=== PATIENT | female | born 1985 | race Caucasian/White ===

== ENCOUNTER 2018-03-03 01:14 | Inpatient (IN) | payer OTHER ==
[~2018-03-03] VITALS: Ht 167.6 cm; Wt 93.2 kg
[2018-03-03 01:17] VITALS: Ht 167.6 cm; Wt 93.2 kg
[2018-03-03] MEDS ORDERED: SODIUM CHLORIDE 0.9% 1L BAG IV* STA (01:34)
[2018-03-03] MEDS ORDERED: ONDANSETRON 4 MG INJ IV STA (02:15)
[2018-03-03] MEDS ORDERED: PIPER-TAZO 3.375 GM IV (PMX) 100 ML IVPB STA (02:15)
[2018-03-03] MEDS ORDERED: morphine 4 MG/ML VIAL IV STA (02:15)
--- NOTE | 2018-03-03 05:53 | ERD ---
ER Documentation Chief Complaint Chief Complaint right leg pain/swelling x 4 days HPI This is a very pleasant 32-year-old female, with lower extremity swelling and redness. Patient states she was in [place] 2 days ago and was to be admitted for invasive cellulitis however the patient was driving back to [place]. She has mild pain in the leg. No fevers no chills. History of MRSA in the past. No other current issues. ROS All systems reviewed and are negative except as per history of present illness. Allergies Allergies: Coded Allergies: sulfamethoxazole (Verified Allergy, Unknown, 03/03/18) trimethoprim (Verified Allergy, Unknown, 03/03/18) PMhx/Soc History of Surgery: Yes (RIGHT LEG ) Hx Alcohol Use: No Hx Substance Use: No Hx Tobacco Use: Yes Smoking Status: Current every day smoker Physical Exam Vitals Vital Signs Date Temp Pulse Resp B/P (MAP) Pulse Ox O2 O2 Flow FiO2 Time Delivery Rate 03/03/18 111 16 135/97 94 Room Air 04:00 (110) 03/03/18 122 17 130/81 100 Room Air 02:00 (97) 03/03/18 100.4 125 18 143/94 97 01:17 (110) Physical Exam Const: No acute distress Head: Atraumatic Eyes: Normal Conjunctiva ENT: Normal External Ears, Nose and Mouth. Neck: Full range of motion. No meningismus. Resp: Clear to auscultation bilaterally Cardio: Regular rate and rhythm, no murmurs Abd: Soft, non tender, non distended. Normal bowel sounds Skin: Erythema and induration noted of the right lower extremity up to the midcalf. Back: No midline or flank tenderness Ext: No cyanosis, or edema Neur: Awake and alert Psych: Normal Mood and Affect Result Diagram: 03/03/18 0231 03/03/18 0231 Results 24 hrs Laboratory Tests Test 03/03/18 02:31 03/03/18 02:38 03/03/18 03:00 03/03/18 03:11 White Blood 15.4 10^3/ul Count Red Blood Count 4.12 10^6/ul Hemoglobin 11.8 g/dl Hematocrit 37.0 % Mean 89.8 fl Corpuscular Volume Mean 28.6 pg Corpuscular Hemoglobin Mean 31.9 g/dl Corpuscular Hemoglobin Conc ent Red Cell 13.3 % Distribution Width Platelet Count 428 10^3/UL Mean Platelet 9.5 fl Volume Immature 0.500 % Granulocytes % Neutrophils % 77.5 % Lymphocytes % 10.8 % Monocytes % 7.4 % Eosinophils % 3.3 % Basophils % 0.5 % Nucleated Red 0.0 /100WBC Blood Cells % Immature 0.070 10^3/ul Granulocytes # Neutrophils # 11.9 10^3/ul Lymphocytes # 1.7 10^3/ul Monocytes # 1.1 10^3/ul Eosinophils # 0.5 10^3/ul Basophils # 0.1 10^3/ul Nucleated Red 0.0 10^3/ul Blood Cells # Prothrombin 12.2 Sec Time Prothrombin 1.0 Time Ratio INR 0.90 International Normalized Rati o Activated 31.2 Sec Partial Thrombo plast Time Sodium Level 142 mmol/L Potassium Level 4.0 mmol/L Chloride Level 106 mmol/L Carbon Dioxide 27 mmol/L Level Anion Gap 9 Blood Urea 11 mg/dl Nitrogen Creatinine 0.60 mg/dl Est Glomerular > 60 mL/min Filtrat Rate mL/min Glucose Level 108 mg/dl Calcium Level 8.6 mg/dl Troponin I < 0.012 ng/ml POC Venous 1.3 mmol/L Lactate Urine Color YELLOW Urine Clarity CLOUDY Urine pH 5.0 Urine Specific 1.011 [place] Urine Ketones NEGATIVE mg/dL Urine Nitrite NEGATIVE mg/dL Urine Bilirubin NEGATIVE mg/dL Urine NEGATIVE mg/dL Urobilinogen Urine Leukocyte TRACE [place]/ul Esterase Urine 0 /HPF Microscopic RBC Urine 7 /HPF Microscopic WBC Urine Squamous MODERATE /HPF Epithelial Cell s Urine Bacteria FEW /HPF Urine 1+ mg/dL Hemoglobin Urine Glucose NEGATIVE mg/dL Urine Total NEGATIVE mg/dl Protein POC Beta HCG, NEGATIVE Qualitative Test 03/03/18 05:32 POC Venous 1.1 mmol/L Lactate Current Medications Medications Dose Sig/Morro Start Time Status Last (Trade) Ordered Route PRN Stop Time Admin Dose Reason Admin Sodium 2,800 ml BOLUS OVER 2 03/03/18 DC 03/03/18 Chloride HOURS STAT 01:34 02:41 (NS) IV* 03/03/18 01:36 Morphine 4 mg ONCE STAT 03/03/18 DC 03/03/18 Sulfate IV 02:15 02:41 (morphine) 03/03/18 02:17 Ondansetron 4 mg ONCE STAT 03/03/18 DC 03/03/18 HCl (Zofran IV 02:15 02:40 Inj) 03/03/18 02:17 Piperacillin 100 ml @ ONCE STAT 03/03/18 DC 03/03/18 Sod/ 200 mls/hr IVPB 02:15 02:41 Tazobactam 03/03/18 Sod 02:44 IV Flush 3 ml PER 03/03/18 UNV (NS 3 ml) PROTOCOL IV 06:00 Ondansetron 4 mg Q6H PRN 03/03/18 UNV HCl (Zofran IV NAUSEA 06:00 Inj) AND/OR VOMITING 650 mg Q6H PRN 03/03/18 UNV Acetaminophen PO PAIN 06:00 (Tylenol LEVEL 1-3 OR Tab) FEVER 1 tab Q6H PRN 03/03/18 UNV Acetaminophen PO MODERATE 06:00 / PAIN LEVEL Hydrocodone 4-6 Bitart ([place] (5/325)) Docusate 100 mg Q12H PRN 03/03/18 UNV Sodium PO 06:00 (Colace) CONSTIPATION Bisacodyl 5 mg DAILY PRN 03/03/18 UNV (Dulcolax) PO 06:00 CONSTIPATION Heparin 5,000 unit Q8 SC 03/03/18 UNV Sodium 06:00 (Porcine) (Heparin (5000 Units/1ml)) Vancomycin VANCOMYCIN PER 03/03/18 HCl (Vanco PER PHARMACY PROTOCOL XX 06:00 Iv Per Pharmacy) Procedures/MDM Medical decision make: 32-year-old female with cellulitis acute on chronic in the right lower extremity. Start on antibiotics. Culture sent off. Patient will be admitted to hospitalist. Departure Diagnosis: Primary Impression: Swelling Additional Impression: Cellulitis Site of cellulitis: extremity Site of cellulitis of extremity: lower extremity Laterality: right Qualified Codes: L03.115 - Cellulitis of right lower limb Condition: Serious ALENINDIRA AMAROMiguel Mar 03, 2018 05:53
[2018-03-03] MEDS ORDERED: HEPARIN 5,000 UNIT/1 ML VIAL SC SCH (06:00)
[2018-03-03] MEDS ORDERED: VANCOMYCIN IV PER PHARMACY XX SCH (06:00)
[2018-03-03] MEDS ORDERED: ONDANSETRON 4 MG INJ IV PRN (06:00)
[2018-03-03] MEDS ORDERED: DOCUSATE SODIUM 100 MG CAP PO PRN (06:00)
[2018-03-03] MEDS ORDERED: BISACODYL (EC) 5 MG TAB PO PRN (06:00)
[2018-03-03] MEDS ORDERED: ACETAMINOPHEN 325 MG TAB PO PRN (06:00)
[2018-03-03] MEDS ORDERED: NACL 0.9% 3 ML SYG IV SCH (06:00)
--- NOTE | 2018-03-03 06:27 | NUR ---
Vancomycin per Rx 32 y/o F 5'6" 93kg SCr 0.60 Allergy: bactrim Vancomycin 2gm IV x1 dose load Then start Vancomycin 1gm IV q8h Check Vancomycin trough level soon
[2018-03-03] MEDS ORDERED: VANCOMYCIN 2 GM in SOD CHLORIDE 0.9% 500 ML IVPB ONE (06:30)
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
[2018-03-03 07:25] VITALS: BP 118/73; PULSE 102; RESP 18
[2018-03-03] MEDS ORDERED: morphine 4 MG/ML VIAL IV PRN ×3 (07:30→10:30)
--- NOTE | 2018-03-03 07:49 | NUR ---
Strong smell of smoke: Strong smell of smoke coming out of patient room 6399.This patient is new admission from the ER, was here earlier with her, room checked and patient denies smoking, matches were found on bedside table these were confiscated. Patient was made aware and educated on [facility] no smoking policy. Patient denied having smoked, she did say her smokes. Security called to search room.
[2018-03-03] MEDS ORDERED: IOHEXOL 300MG/ML 150 ML BTL ONE (07:58)
[2018-03-03] MEDS ORDERED: SOD CHLORIDE 0.9% 100 ML ONE (07:58)
[2018-03-03] MEDS ORDERED: NICOTINE POLACRILEX 2 MG GUM BUCCAL PRN (08:00)
--- NOTE | 2018-03-03 08:00 | NUR ---
Admission Notes Alert and oriented verbally responsive, complaining of pain in RLE. Fall precautions placed, oriented to unit, all needs attended to at this time.
--- NOTE | 2018-03-03 08:21 | PN ---
Date/Time of Note Date/Time of Note DATE: 03/03/18 TIME: 08:21 Assessment/Plan VTE Prophylaxis SCD applied (from Nsg): Yes Pharmacological prophylaxis: LMWH Lines/Catheters IV Catheter Type (from Nrsg): Saline Lock Assessment/Plan Assessment/Plan 1. Acute right lower extremity calf pain - Per patient she has been undergoing surgeries and treatment for right lower extremity at different hospitals in [place] and [place] - She has significant pain but no signs of erythema or open wound. mild warmth appreciated. - US negative for DVT and awaiting CT scan results - Pain control and patient states she usually is given high doses of narcotics. Does experiencing itching with morphine - Will consult pain management if needed 2. RLE cellulitis - continue on IV antibiotics and monitor for improvement in pain - Tylenol PRN for fevers and still remains tachycardic due to pain 3. HTN - stable 4. Obesity - lifestyle modification counseling provided 5. Tobacco use - nicotine patch 6. h/o MRSA infection in right thigh 7. Normocytic anemia - iron studies ordered 8. Disposition - Continue monitoring med/surg - Pending CT scan LE results - if needed, will consult pain management for better pain control Result Diagram: 03/03/18 0231 03/03/18 0231 Results 24hrs Laboratory Tests Test 03/03/18 02:31 03/03/18 02:38 03/03/18 03:00 03/03/18 03:11 White Blood 15.4 H Count Red Blood Count 4.12 L Hemoglobin 11.8 L Hematocrit 37.0 Mean Corpuscular 89.8 Volume Mean Corpuscular 28.6 L Hemoglobin Mean Corpuscular 31.9 L Hemoglobin Ngoc nt Red Cell 13.3 Distribution Width Platelet Count 428 H Mean Platelet 9.5 Volume Immature 0.500 H Granulocytes % Neutrophils % 77.5 H Lymphocytes % 10.8 L Monocytes % 7.4 Eosinophils % 3.3 Basophils % 0.5 Nucleated Red 0.0 Blood Cells % Immature 0.070 H Granulocytes # Neutrophils # 11.9 H Lymphocytes # 1.7 Monocytes # 1.1 H Eosinophils # 0.5 Basophils # 0.1 Nucleated Red 0.0 Blood Cells # Prothrombin Time 12.2 Prothrombin Time 1.0 Ratio INR 0.90 International Normalized Ratio Activated 31.2 Partial Thrombop last Time Sodium Level 142 Potassium Level 4.0 Chloride Level 106 Carbon Dioxide 27 Level Anion Gap 9 Blood Urea 11 Nitrogen Creatinine 0.60 Est Glomerular > 60 Filtrat Rate mL/min Glucose Level 108 Calcium Level 8.6 Troponin I < 0.012 POC Venous 1.3 Lactate Urine Color YELLOW Urine Clarity CLOUDY A Urine pH 5.0 Urine Specific 1.011 [place] Urine Ketones NEGATIVE Urine Nitrite NEGATIVE Urine Bilirubin NEGATIVE Urine NEGATIVE Urobilinogen Urine Leukocyte TRACE A Esterase Urine 0 Microscopic RBC Urine 7 H Microscopic WBC Urine Squamous MODERATE Epithelial Cells Urine Bacteria FEW A Urine Hemoglobin 1+ H Urine Glucose NEGATIVE Urine Total NEGATIVE Protein POC Beta HCG, NEGATIVE Qualitative Test 03/03/18 05:32 POC Venous 1.1 Lactate Subjective 24 Hr Interval Summary Free Text/Dictation Patient states shes still in excrutiating pain especially after undergoing imaging studies. She said she was recently treated for thigh cellulitis and given Morphine 8mg and Dilaudid 4mg so has high tolerance for pain. Discussed need for pain management at this time since will not be given the high doses at this time. No acute overnight events. Exam/Review of Systems Vital Signs Vitals Vital Signs Date Temp Pulse Resp B/P (MAP) Pulse Ox O2 O2 Flow FiO2 Time Delivery Rate 03/03/18 109 15 139/79 96 Room Air 06:09 (99) 03/03/18 100.4 01:17 Exam General: Mild distress secondary to pain. answering questions appropriately Neck: Supple Chest: Nontender Lungs: Clear to auscultation bilaterally no crackles rales or wheezing Heart: Normal S1-S2, Regular rhythm. tachycardia. No murmur, S3, or S4 Abdomen: Obese, soft , nontender, nondistended , bowel sounds are present. No guarding no rebound tenderness Extremities: Right calf tenderness to palpation, mild induration medial right thigh, no erythema or redness noted. Skin: Old healing wounds of the right medial leg as well as calf, nondraining., No erythema or redness or swelling noted of the right lower extremity Medications Medications Current Medications IV Flush (NS 3 ml) 3 ml PER PROTOCOL IV ; Start 03/03/18 at 06:00 Ondansetron HCl (Zofran Inj) 4 mg Q6H PRN IV NAUSEA AND/OR VOMITING; Start 03/03/18 at 06:00 Acetaminophen (Tylenol Tab) 650 mg Q6H PRN PO PAIN LEVEL 1-3 OR FEVER; Start 03/03/18 at 06:00 Acetaminophen/ Hydrocodone Bitart ([place] (5/325)) 1 tab Q6H PRN PO MODERATE PAIN LEVEL 4-6; Start 03/03/18 at 06:00 Docusate Sodium (Colace) 100 mg Q12H PRN PO CONSTIPATION; Start 03/03/18 at 06:00 Bisacodyl (Dulcolax) 5 mg DAILY PRN PO CONSTIPATION; Start 03/03/18 at 06:00 Heparin Sodium (Porcine) (Heparin (5000 Units/1ml)) 5,000 unit Q8 SC Last administered on 03/03/18at 06:09; Admin Dose 5,000 UNIT; Start 03/03/18 at 06:00 Vancomycin HCl (Vanco Iv Per Pharmacy) VANCOMYCIN PER PHARMACY PER PROTOCOL XX ; Start 03/03/18 at 06:00 Vancomycin HCl 2 gm/Sodium Chloride 500 ml @ 125 mls/hr ONCE ONCE IVPB Last administered on 03/03/18at 07:39; Admin Dose 125 MLS/HR; Start 03/03/18 at 06:30; Stop 03/03/18 at 10:29 Vancomycin HCl 250 ml @ 125 mls/hr Q8H IVPB ; Start 03/03/18 at 16:00 Morphine Sulfate (morphine) 4 mg Q4H PRN IV SEVERE PAIN LEVEL 7-10 Last administered on 03/03/18at 07:57; Admin Dose 4 MG; Start 03/03/18 at 07:30 Piperacillin Sod/ Tazobactam Sod 100 ml @ 200 mls/hr Q6 IVPB ; Start 03/03/18 at 12:00 Nicotine (Nicoderm 21 Mg/ 24hr) 1 patch DAILY TRANSDERM ; Start 03/03/18 at 09:00 Nicotine Polacrilex (Nicorette) 2 mg Q2H PRN BUCCAL CRAVING CIGGARETES; Start 03/03/18 at 08:00 MITESH HERNANDEZ MD Mar 03, 2018 08:21
--- NOTE | 2018-03-03 08:24 | NUR ---
Procedure Ordered:CT RT LOWER EXTREMITY W/CONTRAST Reason for Exam Today:RT CALF PAIN/CELLULITIS Previous Exams: Allergies:SULFA Current Medications Taken: Glucophage ( ) Metformin ( ) Previous reaction to contrast media: Yes ( ) No ( X) : Yes ( ) No ( X) Asthma: Yes ( ) No (X ) Diabetes: Yes ( ) No ( X) Myeloma: Yes ( ) No (X ) Heart Disease: Yes ( X) No ( ) Cardiac Disease: Yes (X ) No ( ) Kidney Disease: Yes ( ) No (X ) Vascular Disease: Yes ( ) No ( X) Patient Teaching done: Yes ( ) No ( ) Manager Small Business Used: Yes ( ) No ( ) Name of Manager Small Business: Language Used: As part of the test requested by your doctor, contrast media may be injected into your vein while the x-rays are being taken. Occasionally, reactions from IV contrast may occur. The physician and staff of this hospital are trained to treat these reactions. Select the type of Contrast that will be given to patient: Isovue 300 ( ) Isovue 370 ( ) Visipaque ( ) Cystografin ( ) OMNIPAQUE 300 (X) Gastrographin ( ) Redi-cat ( ) Volumen ( ) Amount of contrast to be given: 90CC IV (X ) PO ( ) Date given:03/03/18 Lab Values: BUN: 11 Creatinine:0.60 Reason why contrast cannot be given: Location of patient pre-procedure:[facility] Location of patient post procedure:[facility] PT TOLERATED IV CONTRAST INJECTION WELL
[2018-03-03] MEDS ORDERED: HYDROmorphONE 2 MG/ML SYG IV PRN ×2 (09:30→10:00)
[2018-03-03] MEDS ORDERED: SENNA/DOCUSATE NA (8.6MG/50MG) TAB PO PRN (10:00)
[2018-03-03] MEDS: DIPHENHYDRAMINE 50 MG INJ IV PRN ×2 (10:39→18:17)
[2018-03-03] MEDS: NICOTINE (21 MG/24 HR) PATCH TRANSDERM SCH (10:40)
--- NOTE | 2018-03-03 12:18 | NUR ---
relayed sepsis risk to Dr Rayray MD will place orders
[2018-03-03] MEDS: PIPER-TAZO 3.375 GM IV (PMX) 100 ML IVPB SCH ×2 (13:20→19:06)
[2018-03-03] MEDS: SOD CHLORIDE 0.9% 1,000 ML IV SCH (13:20)
[2018-03-03] MEDS ORDERED: VANCOMYCIN 1 GM 250 ML IVPB SCH (15:00)
[2018-03-03 15:29] VITALS: BP 136/82; PULSE 116; RESP 16
--- NOTE | 2018-03-03 16:44 | CONS ---
DATE OF ADMISSION: 03/03/2018 DATE OF CONSULTATION: 03/03/2018 TYPE OF CONSULTATION: Infectious disease. REASON FOR CONSULTATION: Antibiotic management. HISTORY OF PRESENT ILLNESS: Janina Buckner is a 32-year-old female who was admitted to med/surg with r ight lower extremity calf pain and is being seen for antibiotic management. The patient complains of especially right lower extremity calf pain. As she was recently treated for cellulitis, she was con tinued on vancomycin and Zosyn at the current time. She has tenderness to palpation of the right sheldon f, but there is no erythema or redness or swelling. Lower extremity Doppler ultrasound was done to r ule out DVT and a CT scan to rule out deep tissue infection. She presented febrile. Her white count is 15.4, H and H of 11.8 and 37, platelet count 428,000. BUN and creatinine is 11/0.6. Random gluc ose is 108. She was in [place] 2 days ago and was to be admitted for invasive cellulitis; however, she drove back to [place]. She has a history of MRSA in the past. PAST SURGICAL HISTORY: Surgery to right leg. FAMILY HISTORY: Noncontributory. SOCIAL HISTORY: She does not smoke, drink or abuse drugs. ALLERGIES: 1. TRIMETHOPRIM. 2. SULFA. MEDICATIONS: Per chart. REVIEW OF SYSTEMS: Noncontributory. PHYSICAL EXAMINATION: GENERAL: She is a well-developed, well-nourished female who is alert, responsive, in no acute distre ss. VITAL SIGNS: Stable. T-max 100.4. SKIN: Without generalized rash. She has erythema and induration of the right lower extremity up to the mid calf. HEENT: Within normal limits. NECK: Supple. LYMPH NODES: None palpable. CHEST: Decreased breath sounds at the bases. HEART: Without murmur or gallop. ABDOMEN: Soft, nontender without organosplenomegaly or masses. EXTREMITIES: Without cyanosis, clubbing or edema. RECTAL AND GENITAL: Deferred. NEUROLOGIC: No focal neurological abnormalities. DIAGNOSTIC DATA: Venous study showed no evidence of DVTs. chest x-ray showed no evidence of acute c ardiopulmonary disease. Lower extremity CT showed multiloculated intramuscular fluid collection in t he anteromedial aspect of the proximal head of the gastrocnemius and soleus muscle concerning for int ramuscular abscess, anteromedial predominant soft tissue edema with various overlying skin thickening suggesting cellulitis. No CT evidence of acute osseous abnormality. IMPRESSION AND PLAN: The patient was placed on vancomycin and Zosyn. My impression is that she has intramuscular abscess and she will need drainage from surgery. Invasive radiology probably could do that too, but I think she is going to need a surgeon to go in and clean out her abscesses. In the sd antime, she is on vancomycin and Zosyn. I will dictate my findings to the hospitalist. Dictated By: MELISSA VILLEGAS MD, JD/NTS Conf#: [id number] DID#: [id number] CC: MITESH HERNANDEZ MD; CORNELL MC MD;*End*
[2018-03-03] MEDS: HYDROCODONE/APAP (5/325) TAB PO PRN ×2 (16:49→22:49)
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
[2018-03-03] MEDS ORDERED: LIDOCAINE 1% (MPF) 30 ML INJ INJ PRN (17:00)
[2018-03-03] MEDS: morphine 4 MG/ML VIAL IV PRN ×2 (17:14→21:16)
[2018-03-03] MEDS: VANCOMYCIN 1 GM 250 ML IVPB SCH (17:28)
[2018-03-03] MEDS: KETOROLAC 30 MG INJ IV PRN (18:16)
--- NOTE | 2018-03-03 19:29 | NUR ---
End of Shift Notes Resting comfortably in bed, procedure done with Dr Marie and tolerated well. Hourly roundings done, patient educated on non-smoking policy of facility. at bedside, all needs attended to hourly roundings done, pain managed
[2018-03-03 20:10] VITALS: BP 136/68; PULSE 119; RESP 18
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
[2018-03-04] MEDS: PIPER-TAZO 3.375 GM IV (PMX) 100 ML IVPB SCH ×4 (00:03→22:39)
[2018-03-04] MEDS: DIPHENHYDRAMINE 50 MG INJ IV PRN ×3 (00:14→23:04)
[2018-03-04] MEDS: morphine 4 MG/ML VIAL IV PRN ×3 (01:13→09:30)
[2018-03-04] MEDS: VANCOMYCIN 1 GM 250 ML IVPB SCH ×2 (01:13→07:48)
[2018-03-04 01:38] VITALS: BP 127/88; PULSE 106; RESP 18
[2018-03-04] MEDS: SOD CHLORIDE 0.9% 1,000 ML IV SCH (02:04)
--- NOTE | 2018-03-04 06:14 | NUR ---
EOSS: Patient remains stable. No s/s of SOB noted. Complains of pain intermittently and medicated with morphine 4mg IV Q4H PRN. No other complaints at this time. Will endorse to morning nurse for continuity of care.
[2018-03-04 07:43] VITALS: BP 138/82; PULSE 71; RESP 20
[2018-03-04] MEDS: HYDROCODONE/APAP (5/325) TAB PO PRN ×3 (07:48→22:36)
[2018-03-04 08:09] VITALS: BP 125/76; PULSE 100; RESP 18
--- NOTE | 2018-03-04 08:17 | PN ---
Date/Time of Note Date/Time of Note DATE: 03/04/18 TIME: 08:17 Assessment/Plan VTE Prophylaxis Risk score (from Ns)>0 risk: 3 SCD applied (from Ns): No SCD contraindicated: patient refusal Pharmacological prophylaxis: LMWH Lines/Catheters IV Catheter Type (from Nrsg): Peripheral IV Assessment/Plan Assessment/Plan 1. Acute right lower extremity calf pain- improving - Podiatry on board and appreciate consultation. performed aspiration 03/03 and sent fluid for cultures - ID on board and appreciate recommendations. Continue current antibiotics and await cx results - Pain management consulted given patient keeps requesting high doses of Morphine - Imaging study results noted 2. RLE cellulitis- improving - continue on IV antibiotics - Tylenol PRN for fevers and still remains tachycardic due to pain 3. HTN - stable 4. Obesity - lifestyle modification counseling provided 5. Tobacco use - nicotine patch 6. h/o MRSA infection in right thigh 7. Iron deficiency anemia - iron studies noted 8. Disposition - Continue pain control and await final culture results prior to discharge home Result Diagram: 03/04/18 0718 03/04/18 0718 Results 24hrs Laboratory Tests Test 03/04/18 07:18 White Blood Count 13.7 H Red Blood Count 3.76 L Hemoglobin 10.6 L Hematocrit 33.4 L Mean Corpuscular Volume 88.8 Mean Corpuscular Hemoglobin 28.2 L Mean Corpuscular Hemoglobin Concent 31.7 L Red Cell Distribution Width 13.6 Platelet Count 378 Mean Platelet Volume 9.3 Immature Granulocytes % 0.700 H Neutrophils % 72.8 Lymphocytes % 13.2 L Monocytes % 9.1 Eosinophils % 3.8 Basophils % 0.4 Nucleated Red Blood Cells % 0.0 Immature Granulocytes # 0.090 H Neutrophils # 10.0 H Lymphocytes # 1.8 Monocytes # 1.3 H Eosinophils # 0.5 Basophils # 0.1 Nucleated Red Blood Cells # 0.0 Sodium Level 140 Potassium Level 4.3 Chloride Level 104 Carbon Dioxide Level 28 Anion Gap 8 Blood Urea Nitrogen 11 Creatinine 0.53 Est Glomerular Filtrat Rate mL/min > 60 Glucose Level 138 Hemoglobin A1c 5.5 Calcium Level 8.6 Magnesium Level 1.9 Iron Level 19 L Total Iron Binding Capacity 290 Percent Iron Saturation 7 L Total Bilirubin 0.0 L Direct Bilirubin 0.00 Indirect Bilirubin 0.0 Aspartate Amino Transf (AST/SGOT) 10 L Alanine Aminotransferase (ALT/SGPT) 27 Alkaline Phosphatase 66 Total Protein 6.1 Albumin 3.1 L Globulin 3.00 Albumin/Globulin Ratio 1.03 Triglycerides Level 86 Cholesterol Level 130 LDL Cholesterol, Calculated 80 HDL Cholesterol 33 L Cholesterol/HDL Ratio 3.9 Thyroid Stimulating Hormone (TSH) Pending Vancomycin Level Trough 9.5 L Subjective 24 Hr Interval Summary Free Text/Dictation Patient seen ambulating on right foot without any issues. Still complaining about pain but significantly improved. Also asking to leave the unit with super vision but not approved by nursing bookkeeping clerks supervisor. Exam/Review of Systems Vital Signs Vitals Vital Signs Date Temp Pulse Resp B/P (MAP) Pulse Ox O2 O2 Flow FiO2 Time Delivery Rate 03/04/18 98.5 100 18 125/76 100 Room Air 08:09 (92) Intake and Output 03/03/18 03/03/18 03/04/18 1515:00 23:00 07:00 IntakeIntake Total 1080 ml 1865 ml 950 ml BalanceBalance 1080 ml 1865 ml 950 ml Exam General: No acute distress while limping on right foot. answering questions appropriately Neck: Supple Lungs: Clear to auscultation bilaterally no crackles rales or wheezing Heart: Normal S1-S2, Regular rhythm. tachycardia. No murmur, S3, or S4 Abdomen: Obese, soft , nontender, nondistended , bowel sounds are present. No guarding no rebound tenderness Extremities: Right calf mildly tender palpation, Kerlix wrapped around calf, no discharge or drainage noted. Skin: Old healing wounds of the right medial thigh, nondraining Medications Medications Current Medications IV Flush (NS 3 ml) 3 ml PER PROTOCOL IV ; Start 03/03/18 at 06:00 Ondansetron HCl (Zofran Inj) 4 mg Q6H PRN IV NAUSEA AND/OR VOMITING; Start at 06:00 Acetaminophen (Tylenol Tab) 650 mg Q6H PRN PO PAIN LEVEL 1-3 OR FEVER; Start 03/03/18 at 06:00 Acetaminophen/ Hydrocodone Bitart ([place] (5/325)) 1 tab Q6H PRN PO MODERATE PAIN LEVEL 4-6 Last administered on 03/04/18at 07:48; Admin Dose 1 TAB; Start 03/03/18 at 06:00 Docusate Sodium (Colace) 100 mg Q12H PRN PO CONSTIPATION; Start 03/03/18 at 06:00 Bisacodyl (Dulcolax) 5 mg DAILY PRN PO CONSTIPATION; Start 03/03/18 at 06:00 Vancomycin HCl (Vanco Iv Per Pharmacy) VANCOMYCIN PER PHARMACY PER PROTOCOL XX ; Start 03/03/18 at 06:00 Vancomycin HCl 250 ml @ 125 mls/hr Q8H IVPB Last administered on 03/04/18at 07:48; Admin Dose 125 MLS/HR; Start 03/03/18 at 16:00 Piperacillin Sod/ Tazobactam Sod 100 ml @ 200 mls/hr Q6 IVPB Last administered on 03/04/18at 05:25; Admin Dose 200 MLS/HR; Start 03/03/18 at 12:00 Nicotine (Nicoderm 21 Mg/ 24hr) 1 patch DAILY TRANSDERM Last administered on 03/03/18at 10:40; Admin Dose 1 PATCH; Start 03/03/18 at 09:00 Nicotine Polacrilex (Nicorette) 2 mg Q2H PRN BUCCAL CRAVING CIGGARETES; Start 03/03/18 at 08:00 Diphenhydramine HCl (Benadryl) 25 mg Q6H PRN IV itching Last administered on 03/04/18at 00:14; Admin Dose 25 MG; Start 03/03/18 at 09:30 Senna/Docusate Sodium (Senokot-S) 1 tab BID PRN PO constipation; Start 03/03/18 at 10:00 Enoxaparin Sodium (Lovenox) 40 mg DAILY SC ; Start 03/04/18 at 09:00 Ketorolac Tromethamine (Toradol) 30 mg Q6H PRN IV PAIN LEVEL 1-3 Last administered on 03/03/18at 18:16; Admin Dose 30 MG; Start 03/03/18 at 10:00; Stop 03/06/18 at 09:59 Sodium Chloride 1,000 ml @ 75 mls/hr [id number] IV Last administered on 03/03/18at 13:20; Admin Dose 75 MLS/HR; Start 03/03/18 at 13:00 Morphine Sulfate (morphine) 4 mg Q4H PRN IV PAIN LEVEL 4-6 Last administered on 03/04/18at 05:22; Admin Dose 4 MG; Start 03/03/18 at 14:00 Lidocaine (Xylocaine 1% (Mpf)) 30 ml ONCE PRN INJ pain Last administered on 03/03/18at 17:01; Admin Dose 30 ML; Start 03/03/18 at 17:00; Stop 03/04/18 at 16:59 Ferrous Sulfate (Ferrous Sulfate (Ec)) 325 mg DAILY PO ; Start 03/04/18 at 09:00 MITESH HERNANDEZ MD Mar 04, 2018 08:17
[2018-03-04] MEDS ORDERED: ENOXAPARIN 40 MG/0.4 ML SYG SC SCH (09:00)
[2018-03-04] MEDS ORDERED: FERROUS SULFATE (EC) 325 MG TAB PO SCH (09:00)
--- NOTE | 2018-03-04 09:09 | NUR ---
Vancomycin per Rx Vancomycin trough = 9.5 SCr 0.53 Change Vancomycin to 1.25 gm IV q8h
[2018-03-04] MEDS: NICOTINE (21 MG/24 HR) PATCH TRANSDERM SCH (09:36)
[2018-03-04] MEDS: LORAZEPAM 4 MG/ML VIAL IV PRN ×2 (11:42→19:59)
--- NOTE | 2018-03-04 12:41 | CONS ---
Date/Time of Note Date/Time of Note DATE: 03/04/18 TIME: 12:41 Assessment/Plan Assessment/Plan Hospital Course Alert feels much better looks comfortable no fevers overnight WBC today 13.7 neutrophils 72.8 BUN 11 creatinine 0.53 Antimicrobials: Vanco Zosyn Physical examination: This is a morbidly obese well-developed middle-aged woman who is alert in no distress. Head atraumatic normocephalic sclera nonicteric neck is supple chest rise symmetrical breath sounds clear heart: S1-S2. Abdomen soft bowel sounds present. Extremities: right lower extremity Ed wrapped. Patient has a dry wound above the knee on inner part of the leg Assessment: 1. Right lower extremity cellulitis questionable abscess, status post aspiration by podiatry yesterday with marked improvement 2. Obesity 3. Anxiety disorder 4. Hypertension 5. Chronic tobacco use 6. Allergy: Bactrim Plan: Patient remains stable per discussion with podiatry right lower extremity looks much better, continue on current antibiotics and await for drainage cultures. Anticipate discharge on oral antibiotics Result Diagram: 03/04/18 0718 03/04/18 0718 Results 24hrs Laboratory Tests Test 03/04/18 07:15 03/04/18 07:18 Erythrocyte Sedimentation Rate 72 H C-Reactive Protein 7.5 H White Blood Count 13.7 H Red Blood Count 3.76 L Hemoglobin 10.6 L Hematocrit 33.4 L Mean Corpuscular Volume 88.8 Mean Corpuscular Hemoglobin 28.2 L Mean Corpuscular Hemoglobin Concent 31.7 L Red Cell Distribution Width 13.6 Platelet Count 378 Mean Platelet Volume 9.3 Immature Granulocytes % 0.700 H Neutrophils % 72.8 Lymphocytes % 13.2 L Monocytes % 9.1 Eosinophils % 3.8 Basophils % 0.4 Nucleated Red Blood Cells % 0.0 Immature Granulocytes # 0.090 H Neutrophils # 10.0 H Lymphocytes # 1.8 Monocytes # 1.3 H Eosinophils # 0.5 Basophils # 0.1 Nucleated Red Blood Cells # 0.0 Sodium Level 140 Potassium Level 4.3 Chloride Level 104 Carbon Dioxide Level 28 Anion Gap 8 Blood Urea Nitrogen 11 Creatinine 0.53 Est Glomerular Filtrat Rate mL/min > 60 Glucose Level 138 Hemoglobin A1c 5.5 Calcium Level 8.6 Magnesium Level 1.9 Iron Level 19 L Total Iron Binding Capacity 290 Percent Iron Saturation 7 L Ferritin 52.1 Total Bilirubin 0.0 L Direct Bilirubin 0.00 Indirect Bilirubin 0.0 Aspartate Amino Transf (AST/SGOT) 10 L Alanine Aminotransferase (ALT/SGPT) 27 Alkaline Phosphatase 66 Total Protein 6.1 Albumin 3.1 L Globulin 3.00 Albumin/Globulin Ratio 1.03 Triglycerides Level 86 Cholesterol Level 130 LDL Cholesterol, Calculated 80 HDL Cholesterol 33 L Cholesterol/HDL Ratio 3.9 Thyroid Stimulating Hormone (TSH) 3.940 Vancomycin Level Trough 9.5 L Consultation Date/Type/Reason Admit Date/Time Mar 03, 2018 at 05:38 Initial Consult Date Type of Consult id Exam/Review of Systems Vital Signs Vitals Vital Signs Date Temp Pulse Resp B/P (MAP) Pulse Ox O2 O2 Flow FiO2 Time Delivery Rate 03/04/18 98.5 100 18 125/76 100 Room Air 08:09 (92) Intake and Output 03/03/18 03/03/18 03/04/18 1515:00 23:00 07:00 IntakeIntake Total 1080 ml 1865 ml 950 ml BalanceBalance 1080 ml 1865 ml 950 ml Medications Medications Current Medications IV Flush (NS 3 ml) 3 ml PER PROTOCOL IV ; Start 03/03/18 at 06:00 Ondansetron HCl (Zofran Inj) 4 mg Q6H PRN IV NAUSEA AND/OR VOMITING Last administered on 03/04/18at 09:40; Admin Dose 4 MG; Start 03/03/18 at 06:00 Acetaminophen/ Hydrocodone Bitart ([place] (5/325)) 1 tab Q6H PRN PO MODERATE PAIN LEVEL 4-6 Last administered on 03/04/18at 07:48; Admin Dose 1 TAB; Start 03/03/18 at 06:00 Docusate Sodium (Colace) 100 mg Q12H PRN PO CONSTIPATION; Start 03/03/18 at 06:00 Bisacodyl (Dulcolax) 5 mg DAILY PRN PO CONSTIPATION; Start 03/03/18 at 06:00 Vancomycin HCl (Vanco Iv Per Pharmacy) VANCOMYCIN PER PHARMACY PER PROTOCOL XX ; Start 03/03/18 at 06:00 Piperacillin Sod/ Tazobactam Sod 100 ml @ 200 mls/hr Q6 IVPB Last administered on 03/04/18at 05:25; Admin Dose 200 MLS/HR; Start 03/03/18 at 12:00 Nicotine (Nicoderm 21 Mg/ 24hr) 1 patch DAILY TRANSDERM Last administered on 03/04/18at 09:36; Admin Dose 1 PATCH; Start 03/03/18 at 09:00 Nicotine Polacrilex (Nicorette) 2 mg Q2H PRN BUCCAL CRAVING CIGGARETES; Start 03/03/18 at 08:00 Diphenhydramine HCl (Benadryl) 25 mg Q6H PRN IV itching Last administered on 03/04/18at 00:14; Admin Dose 25 MG; Start 03/03/18 at 09:30 Senna/Docusate Sodium (Senokot-S) 1 tab BID PRN PO constipation; Start at 10:00 Enoxaparin Sodium (Lovenox) 40 mg DAILY SC Last administered on 03/04/18at 09:35; Admin Dose 40 MG; Start 03/04/18 at 09:00 Ketorolac Tromethamine (Toradol) 30 mg Q6H PRN IV PAIN LEVEL 1-3 Last administered on 03/03/18at 18:16; Admin Dose 30 MG; Start 03/03/18 at 10:00; Stop 03/06/18 at 09:59 Lidocaine (Xylocaine 1% (Mpf)) 30 ml ONCE PRN INJ pain Last administered on 03/03/18at 17:01; Admin Dose 30 ML; Start 03/03/18 at 17:00; Stop 03/04/18 at 16:59 Ferrous Sulfate (Ferrous Sulfate (Ec)) 325 mg DAILY PO Last administered on 03/04/18at 09:30; Admin Dose 325 MG; Start 03/04/18 at 09:00 Vancomycin HCl 1.25 gm/Sodium Chloride 250 ml @ 83.333 mls/ hr Q8H IVPB ; Start 03/04/18 at 16:00 Lorazepam (Ativan) 1 mg Q6H PRN IV anxiety Last administered on 03/04/18at 11:42; Admin Dose 1 MG; Start 03/04/18 at 10:30 Hydromorphone HCl (Dilaudid) 2 mg Q4H PRN IV SEVERE PAIN LEVEL 7-10; Start 03/04/18 at 12:00 JAYA DAVID NP Mar 04, 2018 12:41
[2018-03-04] MEDS: HYDROmorphONE 2 MG/ML SYG IV PRN ×3 (14:25→23:49)
--- NOTE | 2018-03-04 15:31 | NUR ---
Patient was seen by loading unit operator seating [place] smoking in the courtyard today, after being repeatedly told it is against the hospital policy to smoke in the campus, pt also pulled out her right AC IV, repeatedly asks for pain medication regardless of what RN administer, and gets out of bed without using the call light. Pt also threatened to leave AMA, provided the AMA form to be signed then patient changed her mind
[2018-03-04] MEDS: VANCOMYCIN 1.25 GM in SOD CHLORIDE 0.9% 250 ML IVPB SCH (16:16)
[2018-03-04] MEDS: KETOROLAC 30 MG INJ IV PRN (17:33)
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
[2018-03-04 19:57] VITALS: BP 138/81; PULSE 73; RESP 18
--- NOTE | 2018-03-04 20:00 | NUR ---
Patient's room smelled like cigarette while patient's was in the room. Patient stated that she didn't smoke but her smelled like smoke because he just came back from smoking outside. Patient and her was informed again that we have to enforce hospital's rule regarding no smoking.
--- NOTE | 2018-03-04 21:00 | NUR ---
Was called into patient's room earlier because patient's was in the bed with patient, without his shirt on. Spoke with patient and her regarding safety issues such as falling off the bed. Patient's moved to the recliner. This nurse was called again into the patient's room because patient was on top of her , who was in the recliner. Security was called to enforce safety rules. Patient was asked if she would like to move to east for closer observation but patient agreed then changed her mind. Hilary, operation agent was also informed that smelled like alcohol but smell disappeared when he got closer to the nurse. Per Hilary, cannot be asked if he was drinking unless we saw a bottle of alcohol. Per Hilary, might assume that we are harassing him.
[2018-03-05] MEDS: VANCOMYCIN 1.25 GM in SOD CHLORIDE 0.9% 250 ML IVPB SCH (00:49)
[2018-03-05] MEDS: LORAZEPAM 4 MG/ML VIAL IV PRN (02:04)
--- NOTE | 2018-03-05 03:26 | NUR ---
Was called by DAMIAN Riddle because patient was seen walking out of the nursing station. Patient was found in the elevator accompanied by her , patient was informed that she cannot leave the unit, and patient stated "someone , i have to meet someone" then the elevator door closed. Officer Peng was informed along with Hilary, news operations manager.
--- NOTE | 2018-03-05 03:31 | NUR ---
Patient was assisted back to the unit by officer Fuad via wheelchair. Per officer Fuad, patient wants to leave AMA. Pepe Juarez to remove ID band and IV line. Hilary pumping station supervisor was informed.
--- NOTE | 2018-03-05 03:34 | NUR ---
Dr. Gandhi was informed of patient's decision to leave A.
--- NOTE | 2018-03-05 03:40 | NUR ---
Patient left AMA, explained possible consequences of decision, verbalized understanding. IV line & name band removed. Patient assisted out by Nurse department assistant in wheelchair, escorted by security. All belongings gathered, patient signed out AMA accompanied by .
[2018-03-05] MEDS ORDERED: PIPER-TAZO 3.375 GM IV (PMX) 100 ML IVPB SCH (06:00)
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
== END 2018-03-05 03:40 | disposition left against medical advice (07) | DRG 603 ==
LOC: E/R 01:14 → 2NE 05:38
PROVIDERS: ADMIT Family Medicine; ATTEND Internal Medicine
DX: L03.115 Cellulitis of right lower limb (principal); F17.200 Nicotine dependence, unspecified, uncomplicated; E66.9 Obesity, unspecified; M79.81 Nontraumatic hematoma of soft tissue; D50.9 Iron deficiency anemia, unspecified; Z68.33 Body mass index [BMI] 33.0-33.9, adult; I10 Essential (primary) hypertension; F41.9 Anxiety disorder, unspecified; Z88.2 Allergy status to sulfonamides; D64.9 Anemia, unspecified; Z86.14 Personal history of Methicillin resistant Staphylococcus aureus infection
CPT/HCPCS: 36415; 71045; 73700; 80048; 80053; 80061; 80202; 81001; 81025; 82728; 83036; 83540; 83605; 83735; 84443; 84484; 85025; 85610; 85651; 85730; 86140; 87040; 87070; 87081; 87086; 93005; 93970; 96374; 96375; J1170; J1200; J1644; J1650; J1885; J2060; J2270; J2405; J2543; J3370; J7030; J7040; J7050; Q9967